=== PATIENT | male | born 1995 | race Caucasian/White ===

== ENCOUNTER 2019-09-28 18:34 | Emergency (ER) | payer MEDICAID ==
[~2019-09-28] VITALS: Ht 175.3 cm; Wt 94.3 kg
[2019-09-28 18:50] VITALS: Ht 175.3 cm; Wt 94.3 kg
[2019-09-28 19:45] LABS: ALBUMIN 3.9 g/dL (3.4-5.0); BILIRUBIN TOTAL 1.22 mg/dL (0.20-1.00); CALCIUM 8.7 mg/dL (8.5-10.1); CARBON DIOXIDE 20.2 mmol/L (21-32); TOTAL PROTEIN, SERUM 7.3 g/dL (6.4-8.2)
[2019-09-28 19:51] LABS: CREATININE SERUM 5.7 mg/dL (0.7-1.3)
[2019-09-28 20:09] LABS: BASOPHIL % 0 % (0-2); PLATELET COUNT 250 x10^3mcL (130-400); RED CELL DISTRIBUTION WIDTH 12.8 % (11.5-14.5)
[2019-09-28 21:25] VITALS: BP 123/66
[2019-09-28 22:03] LABS: UA SPECIFIC GRAVITY <=1.005 (1.005-1.035); microscopic required? YES; urine erythrocyte 1+ (NEGATIVE)
[2019-09-28 22:21] LABS: AMPHETAMINE QUAL UR NONE DETECTED (See below)
[2019-09-29] MEDS ORDERED: KEPPRA1000 M1 PO (14:03)
== END 2019-09-28 22:11 | disposition left against medical advice (07) ==
LOC: ED 18:34
PROVIDERS: Emergency Medicine
DX: N17.9 Acute kidney failure, unspecified (principal); M25.512 Pain in left shoulder; M25.511 Pain in right shoulder; M62.82 Rhabdomyolysis; G40.909 Epilepsy, unspecified, not intractable, without status epilepticus; Z98.890 Other specified postprocedural states
CPT/HCPCS: J1885; J2405; J7030; Q0092

== ENCOUNTER 2019-09-29 09:17 | Inpatient (IN) | payer MEDICAID ==
[~2019-09-29] VITALS: Ht 172.7 cm; Wt 91.9 kg
[2019-09-29 09:29] VITALS: Ht 172.7 cm; Wt 91.9 kg
--- NOTE | 2019-09-29 09:49 | NUR ---
PT. IN ED WITH C/O LOWER BACK AND ABD PAIN. STATES HE WAS HERE YESTERDAY AND WAS TOLD HE IS IN KIDNEY FAILURE. SIGNED OUT AMA AND REFUSED TO BE ADMITTED. PT. RETURNS TODAY WITH INCREASED PAIN. PT. AAOX4, TALKING AND RESPONDING APPROPRIATELY, BREATHING E/U. FAMILY AT BEDSIDE. AWAITING MSE.
--- NOTE | 2019-09-29 10:30 | NUR ---
DR. GREEN MADE AWARE THAT PT. DID NOT TAKE HIS KEPPRA TODAY. STATES WILL WAIT FOR CT BEFORE PO MEDS ARE GIVEN.
--- NOTE | 2019-09-29 10:32 | NUR ---
PT. TAKEN TO CT VIA AJ
[2019-09-29 10:48] LABS: BASOPHIL % 0.2 % (0-2); PLATELET COUNT 220 x10^3mcL (130-400); RED CELL DISTRIBUTION WIDTH 13.2 % (11.5-14.5)
[2019-09-29 11:07] LABS: ALBUMIN 3.7 g/dL (3.4-5.0); BILIRUBIN TOTAL 1.25 mg/dL (0.20-1.00); CALCIUM 8.2 mg/dL (8.5-10.1); CARBON DIOXIDE 21.1 mmol/L (21-32); CHOLESTEROL/HDL RATIO 3.6; POTASSIUM SERUM 3.8 mmol/L (3.5-5.1)
[2019-09-29 11:09] LABS: T3 TOTAL 1.37 ng/mL
[2019-09-29 11:14] LABS: CREATININE SERUM 6.4 mg/dL (0.7-1.3)
[2019-09-29 11:18] LABS: FREE T4 0.96 ng/dL (0.76-1.46); FREE THYROXINE INDEX 2.5 ug/dL (1.4-4.5); T4(THYROXINE) 7.3 ug/dL (4.7-13.3)
--- NOTE | 2019-09-29 11:22 | NUR ---
PT. SLEEPING, EASILY ARROUSABLE. NO APPARENT DISTRESS NOTED AT THIS TIME. FAMILY AT BEDSIDE. WILL CONTINUE TO MONITOR.
--- NOTE | 2019-09-29 12:08 | NUR ---
PT. LAYING ON GURNEY SLEEPING, EASILY ARROUSABLE. REQUEST MORE PAIN MEDS. DR. GREEN MADE AWARE. NO ORDERS GIVEN AT THIS TIME. WILL CONTINUE TO MONITOR.
[2019-09-29 12:28] LABS: AMPHETAMINE QUAL UR NONE DETECTED (See below)
--- NOTE | 2019-09-29 12:30 | NUR ---
PT. NOTED TO HAVE EPISODE OF EMESIS. DR. GREEN MADE AWARE AND COMPAZINE ORDERED. PT. TOLERATED WELL. WILL CONTINUE TO MONITOR.
[2019-09-29 12:46] LABS: UA SPECIFIC GRAVITY <=1.005 (1.005-1.035); microscopic required? YES; urine erythrocyte 1+ (NEGATIVE)
--- NOTE | 2019-09-29 13:00 | NUR ---
EMPTIED 300ML OF CLEAR YELLOW URINE FROM URINAL
[2019-09-29 13:26] LABS: MAGNESIUM 2.3 mg/dL (1.8-2.4); PHOSPHOROUS 3.3 mg/dL (2.5-4.9)
--- NOTE | 2019-09-29 13:52 | NUR ---
REPORT GIVEN TO CASI PAVON FOR FURTHER CARE OF PATIENT. ALL QUESTIONS AND CONCERNS ADDRESSED.
[2019-09-29] MEDS ORDERED: KEPPRA1000 M1 PO (14:03)
--- NOTE | 2019-09-29 14:48 | NUR ---
REFUSED MARCUS CATHETER, YELLED "NO!".
--- NOTE | 2019-09-29 14:51 | NUR ---
PT. TRANSFERED TO [facility] FOR FURTHER EVAL AND CARE
[2019-09-29 15:07] VITALS: BP 137/71
--- NOTE | 2019-09-29 17:01 | NUR ---
DELONTE FROM ED AT 1426. AAO TIMES 4. MED SURG. LUNGS CTA. NO SOB. BS'S ACTIVE TIMES 4. [place] WE[place]. IV SITE LFA CDI. MOTHER PRESENT, MOTHER CONCERNED AND CARING. NO C/O PAIN. C/O THIRST, I GAVE HIM ICE WATER, HE DRANK 2 CUPS AND PROMPTLY VOMITED UP THE CLEAR WATER. I NOTIFIED SPENCER MATHEW WILDFIRE PREVENTION SPECIALIST, AND SHE CHANGED THE DIET TO CLEAR LIQUIDS. PERIPHERAL PULSES PALPABLE. NO EDEMA. NO C/O PAIN.
--- NOTE | 2019-09-29 17:39 | NUR ---
AAO TIMES 4. PARENTS PRESENT, CONCERNED AND CARING. MED SURG PATIENT. COOPERATIVE. IV SITE CDI. NO C/O PAIN. NO SOB. NO C/O N/V. URINATED 800 ML OF CLEAR YELLOW URINE VIA URINAL, STATES HE FEELS BETTER. SEIZURE PRECAUTIONS. HE WILL GET KEPRA TONIGHT AND BID PER SPENCER GURROLA ORDER.
--- NOTE | 2019-09-29 20:26 | NUR ---
RECIEVED PT FROM AM, PT IS A/O X4, VERBAL RESPONSIVE, LUNG SOUND CLEAR BILATERAL, NO COUGH, NO SOB, PT DENY ANY CHEST PAIN OR DISCOMFORT, BOWEL SOUND PRESENT ALL 4 QUADRANTS, NO DISTENTION, NO TENDER. C/O LOW ABD PAIN AND N/V NORCO AND ZOFRAN IS GIVEN TO PT. PEDAL PULSE PRESENT BOTH FEET, NO EDEMA, IV AT LEFT AC, NO LEAKING, NO INFILTRAITON. ALL ADLS ASSIST, ALL NEED MET, CALL LIGHT IN REACH. WILL CONTINUE TO MONITOR.
[2019-09-29 20:35] VITALS: BP 139/100
--- NOTE | 2019-09-29 22:30 | NUR ---
KILLIAN PT TO LEVI PAVON.
--- NOTE | 2019-09-30 00:10 | NUR ---
PT C/O SHARP PAIN TO LOWER ABD 10/10. MEDICATED WITH NORCO.
--- NOTE | 2019-09-30 01:35 | NUR ---
PT RESTING WITH EYES CLOSED. NO DISTRESS NOTED. CALL LIGHT WITHIN REACH. MOTHER AT BEDSIDE. WILL CONTINUE TO MONITOR.
--- NOTE | 2019-09-30 04:49 | NUR ---
MORPHINE GIVEN FOR SHARP PAIN TO LOWER ABD 9/10. ZOFRAN GIVEN FOR NAUSEA.
[2019-09-30 05:20] VITALS: BP 122/68
--- NOTE | 2019-09-30 06:16 | NUR ---
PT RESTED IN INTERVALS DURING SHIFT. NO SOB NOTED ON ROOM AIR. C/O PAIN TO LOWER ABDOMEN, MEDICATED WITH NORCO X2 AND MORPHINE X2. ZOFRAN GIVEN X1 FOR NAUSEA. NO SEIZURES NOTED THROUGHOUT SHIFT. SIDE RAIL PADS IN PLACE. SAFETY MEASURES MAINTAINED. ALL NEEDS ATTENDED TO. CALL LIGHT WITHIN REACH. MOTHER AT BEDSIDE. WILL CONTINUE TO MONITOR AND ENDORSE CONTINUITY OF CARE TO DAY SHIFT RN.
[2019-09-30 06:37] LABS: BASOPHIL % 0.3 % (0-2); PLATELET COUNT 179 x10^3mcL (130-400); RED CELL DISTRIBUTION WIDTH 12.9 % (11.5-14.5)
--- NOTE | 2019-09-30 07:30 | NUR ---
PT ENDORSE TO ME THIS MORNING, LAYING IN BED RESTING/ AA/O X4/ SZ PREC INPLACE. BREATHING EVEN AND UNLABORED ON RA NO ACUTE RESP DISTRESS OR SOB NOTED. MEDSURG/ DENIES ANY CP OR PRESSURE. BOWEL SOUNDS ACTIVE IN ALL FOUR QUADS. VOIDS FEELY. AMB. SKIN INTACT AND PATENT. IV TO THE LAC INTACT AND PATENT/ NO REDNESS OR SWELLING NOTED. CALL LIGHT IN REACH.BED IN LOW POSTION. WILL CONTINUE TO MONITOR.
[2019-09-30 07:57] LABS: POTASSIUM SERUM 3.9 mmol/L (3.5-5.1)
[2019-09-30 08:21] LABS: CREATININE SERUM 5.4 mg/dL (0.7-1.3)
[2019-09-30 08:38] VITALS: BP 132/80
--- NOTE | 2019-09-30 09:32 | NUR ---
PT C/O BACK PAIN 08/23, MEDICATED PER EMAR. WILL CONTINUE TO MONITOR.
--- NOTE | 2019-09-30 09:51 | NUR ---
LAB CALLED BUN/CREAT = 29/5.4 PHARMACOLOGY ASSOCIATE MYRON MADE AWARE. WILL CONTINUE TO MONITOR.
[2019-09-30 12:11] VITALS: BP 142/85
--- NOTE | 2019-09-30 13:16 | NUR ---
PT C/O OF ABD PAIN 04/22, MEDICATED PER EMAR. WILL CONTINUE TO MONITOR, FAMILY AT BEDSIDE. PROVIDED PT WITH ALL SUPPLIES TO SHOWER/ TOLERATED WELL.
--- NOTE | 2019-09-30 15:17 | NUR ---
Discount pharmacy card and list to low cost medical clinics given to patient by Alysia.
--- NOTE | 2019-09-30 15:33 | NUR ---
PT SITTING UP IN BED RESTING TALKING TO A VISITOR. IS C/O ABD PAIN 10/, EDUCATED PT ITS NOT TIME FOR MORPHINE AT THIS TIME, MEDICATED WITH NORCO. WILL CONTINUE TO MONITOR.
[2019-09-30 16:05] VITALS: BP 152/93
--- NOTE | 2019-09-30 17:30 | NUR ---
PT C/O OF N/V ABD PAIN 04/22, MEDICATED PER EMAR.
[2019-09-30 17:32] VITALS: BP 141/73
--- NOTE | 2019-09-30 18:12 | NUR ---
NO ACUTE CHANGES AT THIS TIME, NO ACUTE RESP DISTRESS OR SOB NOTED. TOLERATED 100% OF DINNER/ DENIES ANY N/V AT THIS TIME, MEDICATED PER EMAR. IV TO THE LAC INTACT AND PATENT/ NO REDNESS OR SWELLING NOTED. CALL LIGHT IN REACH. WILL CONTINUE TO MONITOR.
--- NOTE | 2019-09-30 18:59 | NUR ---
WILL ENDORSE TO INCOMING RN.
--- NOTE | 2019-09-30 20:10 | NUR ---
MEDICATED PT WITH PRN NORCO FOR KIDNEY PAIN 03/23, PT'S AAOX4 NO ACUTE DISTRESS NOTED, LUNG SOUNDS CTA, ABD SOFT BS ACTIVE X4, ABD SOFT NON-TENDER TO TOUCH , PIV INTACT WITH NS AT 150ML/HR ,CALL LIGHT WITH PT'S REACH , WILL CON'T TO MONITOR AND ASSIST PT WITH CARE .
[2019-09-30 20:35] VITALS: BP 144/92
[2019-10-01 04:44] VITALS: BP 136/81
--- NOTE | 2019-10-01 05:04 | NUR ---
MEDICATED PT FOR ABD PAIN /NAUSEA NO EMESIS NOTED, .
--- NOTE | 2019-10-01 05:06 | NUR ---
I HAVE REVIEWED THE DATA COLLECTION BY DORIS (NAME):RUSSELL SHIELDS ENTERED ON (DATE/TIME):09/30 I CONCUR WITH THE DATA AND ANY EXCEPTIONS OR COMMENTS ARE LISTED BELOW:
--- NOTE | 2019-10-01 06:23 | NUR ---
PT;S IN BED WITH EYES CLOSED , PIV INTACT INFUSING WELL , MOTHER AT THE BEDSIDE FOR SAFTY .
[2019-10-01 06:52] LABS: BASOPHIL % 0.4 % (0-2); PLATELET COUNT 212 x10^3mcL (130-400); RED CELL DISTRIBUTION WIDTH 12.8 % (11.5-14.5)
--- NOTE | 2019-10-01 07:44 | NUR ---
0700. REPORT TAKEN FROM EMPLOYMENT RECRUITER NURSE AT THE BEDSIDE, PATIENT RESTING AT THIS TIME WITH EYES CLOSED, CHEST RISE AND FALL OBSERVED, BREATHING EAQUAL AND UNLABORED, NO ACUTE DISTRESS OBSERVED, WILL CONTINUE TO MONITOR,.
[2019-10-01 07:46] LABS: CARBON DIOXIDE 22.4 mmol/L (21-32); CREATININE SERUM 3.8 mg/dL (0.7-1.3); MAGNESIUM 1.7 mg/dL (1.8-2.4); POTASSIUM SERUM 3.3 mmol/L (3.5-5.1)
[2019-10-01 08:37] VITALS: BP 150/91
--- NOTE | 2019-10-01 09:42 | NUR ---
PATIENT TOLERATED MEDICATION WELL, REPORTS LOWER ABD PAIN, GIVEN NORCO PRN, VOIDS WELL INTO BEDSIDE URINAL, WILL CONTINUE TO MONITOR.
--- NOTE | 2019-10-01 10:46 | NUR ---
PATIENT REQUESTED TO SHOWER, I SPOKE TO IZABELA MATHEW WHO GAVE TELEPHONE ORDER GIVING THE PATIENT PERMISSION TO SHOWER, I WRAPPED THE PATIENT'S IV SITE, AND GAVE HIM SUPPLIES TO SHOWER WITH. HE DENIED NEEDED HELP SHOWERING, WILL MONITOR.
[2019-10-01 12:23] VITALS: BP 142/87
--- NOTE | 2019-10-01 13:21 | NUR ---
PATIENT ASKED WHAT MEDICATIONS HE CAN TAKE GOING HOME FOR PAIN BEFORE HE SEES HIS PRIMARY CARE PROVIDER TOMORROW MORNING. I SPOKE TO IZABELA MATHEW WHO ADVISED THE PATIENT TAKE OTC IBUPROFEN OR TYLENOL NEEDED FOR PAIN. I WILL REPORT TO PATIENT AND HIS MOTHER.
[2019-10-01 14:10] VITALS: BP 142/87
--- NOTE | 2019-10-01 15:08 | NUR ---
1445: PATIENT SIGNED DISCHARGE PAPERWORK AT THE BEDSIDE, IV DC'D FROM RIGHT HAND WITH CATH INTACT, SITE DRESSED WITH GAUZE AND COBAN, PATIENT AND HIS MOTHER ADVISED OF FOLLOW UP APPOINTMENT SCHEDULED WITH PCP FOR TOMORROW MORNING, BOTH VERBALIZED UNDERSTANDING. PATIENT AND HIS MOTHER ALSO ADVISED THAT THEY WILL RECEIVE A CALL FROM RADIATION MONITOR TOMORROW TO ADVISE ON NEPHO FOLLOW UP. PHONE NUMBER IN CHART CONFIRMED AT THE BEDSIDE. PATIENT TAKEN TO DISCAHRGE OFFICE BY JAYLEN.
--- NOTE | 2019-10-02 14:23 | NUR ---
MARILYN KYLE. 10/01/19 AT 1305-[facility] GIVEN TO PATIENT BY KHADIJAH.
== END 2019-10-01 14:52 | disposition home or self-care (01) | DRG 351 ==
LOC: ED 09:17 → MU 13:09
PROVIDERS: Internal Medicine Nephrology; Specialist; ADMIT Family Medicine
DX: M62.82 Rhabdomyolysis (principal); N17.0 Acute kidney failure with tubular necrosis; E83.51 Hypocalcemia; R31.9 Hematuria, unspecified; G40.909 Epilepsy, unspecified, not intractable, without status epilepticus; F12.10 Cannabis abuse, uncomplicated; Z68.30 Body mass index [BMI] 30.0-30.9, adult
CPT/HCPCS: 36600; 83880; 84439; G0378; G0480; J0696; J0780; J1940; J2270; J2405; J3490; J7030; Q0092

== ENCOUNTER 2019-10-02 23:06 | Inpatient (IN) | payer MEDICAID ==
[~2019-10-02] VITALS: Ht 172.7 cm; Wt 95.3 kg
[~2019-10-02 23:06] MED LIST: KEPPRA1000 M1 PO
[2019-10-02 23:11] VITALS: Ht 172.7 cm; Wt 95.3 kg
--- NOTE | 2019-10-02 23:20 | NUR ---
DR. MURPHY AT BEDSIDE WITH MSE,
--- NOTE | 2019-10-02 23:21 | NUR ---
PT. PRESENTS TO ER C/O SWELLING ON LEFT UPPER EXTREMITIY, PT. STATES HE WAS ADMITTED TO THE HOSPITAL TWO DAYS AGO, RECEIVED AN IV ON LAC, PT. STATES TODAY HE NOTICED A SWELLING TO THE LAC WHERE IV WAS IN PLACE ALL THE WAY TO HIS HAND, PT. STATES IT IS DIFFICULT FOR HIM TO EXTEND HIS ARM, REDNESS NOTED, SWELLING NOTED, HOT TO TOUCH, BRUISING NOTED IN LEFT UPPER EXTREMITIES, NUMBNESS AND TINGLING, PT. DENIES SOB, DENIES CHEST PAIN, DENIES N/V/D, DENIES URINARY SYMPTOMS, PT. STATES HE TOOK SOMETHING FOR NAUSEA BEFORE HE CAME, CANNOT RECALL THE NAME OF THE MEDICATION, STATES HE SMOKES MARIJUANA, MOTHER AT BEDSIDE, SAFETY PRECAUTIONS IN PLACE, WILL MONITOR,
--- NOTE | 2019-10-02 23:35 | NUR ---
CHEST X RAY OBTAINED, EKG IN PROGRESS
[2019-10-03 00:21] LABS: BASOPHIL % 0.8 % (0-2); PLATELET COUNT 252 x10^3mcL (130-400); RED CELL DISTRIBUTION WIDTH 12.7 % (11.5-14.5)
[2019-10-03 00:29] LABS: CALCIUM 7.1 mg/dL (8.5-10.1); CARBON DIOXIDE 29.9 mmol/L (21-32); CREATININE SERUM 2.3 mg/dL (0.7-1.3)
[2019-10-03 00:33] LABS: ALBUMIN 3.1 g/dL (3.4-5.0); BILIRUBIN TOTAL 0.82 mg/dL (0.20-1.00); TOTAL PROTEIN, SERUM 6.9 g/dL (6.4-8.2)
--- NOTE | 2019-10-03 00:50 | NUR ---
US AT BEDSIDE
[2019-10-03 01:13] LABS: microscopic required? YES; urine erythrocyte 1+ (NEGATIVE)
[2019-10-03 01:22] LABS: AMPHETAMINE QUAL UR NONE DETECTED (See below)
--- NOTE | 2019-10-03 01:28 | NUR ---
PT. LAYING IN BED, AAOX4, NO ACUTE DISTRESS NOTED, DR. MURPHY AT BEDSIDE WITH UPDATE ON PT, PT. TO BE ADMITTED, WILL CONTINUE TO MONITOR.
--- NOTE | 2019-10-03 02:31 | NUR ---
REPORT SIEGEL TO DAMON BLANC RN
--- NOTE | 2019-10-03 02:55 | NUR ---
RECEIVED PT FROM ED VIA NIGEL ACCOMPANIED BY RN. PT AA&O X4. NO SOB NOTED ON ROOM AIR. C/O NAUSEA AND BODY ACHE. WILL MEDICATE PER ORDER. IV TO RIGHT HAND, PATENT AND INTACT. EDEMA AND ECCHYMOSIS TO LUE NOTED. SCAB/ABRASION TO RUE. SAFETY MEASURES IN PLACE. BED IN LOWEST POSITION. SIDE RAILS UP X2. CALL LIGHT WITHIN REACH. DEMONSTRATED HOW TO USE THE CALL LIGHT FOR ASSISTANCE. CALL LIGHT WITHIN REACH. MOTHER AT BEDSIDE.
--- NOTE | 2019-10-03 02:59 | NUR ---
PT C/O NAUSEA, MEDICATED WITH ZOFRAN.
--- NOTE | 2019-10-03 03:06 | NUR ---
PT C/O BODY ACHE 07/23. MEDICATED WITH MORPHINE.
[2019-10-03 04:47] VITALS: BP 136/85
[2019-10-03 06:06] LABS: BASOPHIL % 0.4 % (0-2); PLATELET COUNT 249 x10^3mcL (130-400); RED CELL DISTRIBUTION WIDTH 12.9 % (11.5-14.5)
[2019-10-03 06:45] LABS: CALCIUM 7.3 mg/dL (8.5-10.1); CARBON DIOXIDE 27.1 mmol/L (21-32); CREATININE SERUM 2.1 mg/dL (0.7-1.3); MAGNESIUM 1.5 mg/dL (1.8-2.4); PHOSPHOROUS 4.7 mg/dL (2.5-4.9); POTASSIUM SERUM 3.4 mmol/L (3.5-5.1)
--- NOTE | 2019-10-03 07:00 | NUR ---
PT RESTING WITH EYES CLOSED. BREATHING EVEN AND UNLABORED ON ROOM AIR. NO DISTRESS NOTED. SAFETY MEASURES MAINTAINED. CALL LIGHT WITHIN REACH. MOTHER AT BEDSIDE. WILL ENDORSE CONTINUITY OF CARE TO DAY SHIFT RN.
--- NOTE | 2019-10-03 07:20 | NUR ---
RECEIVED PT. IN BED A/A/O X3. NO SOB, NO N/V NOTED. PT. DENIES ANY PAIN AT THIS TIME. MOTHER AT BEDSIDE. NS RUNNING AT 100 CC/HR VIA IV SITE AT R HAND. SWELLING AND REDNESS NOTED TO L UPPER ARM. BED IN LOW POS., CALL LIGHT WITHIN REACH. SIDE RAILS UP X3.
[2019-10-03 09:07] VITALS: BP 122/64
--- NOTE | 2019-10-03 09:10 | NUR ---
PT. STATED " THE DOCTORS HERE ARE NOT DOING THE RIGHT THING. JUST GIVE ME MY PRESCRIPTIONS AND I'M LEAVING." AMA FORM HANDED TO PT. BY OR[place]O Mojica (SKI TOW OPERATOR). PT. REFUSED TO SIGN AMA PAPER. PT. STATED " I'M NOT SIGNING ANYTHING UNTIL YOU GUYS GIVE ME MY PRESCRIPTIONS FOR MY BLOOD THINNER AND MY ANTIBIOTIC." DR. JARQUIN AND DR. SIDHU WERE NOTIFIED OF PT.'S REQUEST FOR PRESCRIPTIONS PRIOR TO LEAVING AMA BY OR[place]O Mojica (SKI TOW OPERATOR). NO FURTHER ORDER RECEIVED FROM DR. JARQUIN AND DR. SIDHU PER ORLANDO Silva. ENGLISH PROFESSOR SPENSER Amezcua ALSO SPOKE TO PT. REGARDING PT.'S COMPLAINT. GRIEVANCE FORM WAS ALSO PROVIDED TO PT. BY ORLANDO Mojica (SKI TOW OPERATOR).
--- NOTE | 2019-10-03 09:39 | NUR ---
PT. STATED HE HAS PAIN ON HIS L ARM AND THAT HE NEEDS HIS PAIN MED. PRIOR TO LEAVING. MANJINDER 7. 1 TAB. GIVEN.
--- NOTE | 2019-10-03 09:50 | NUR ---
PT. LEAVING AMA WITH ALL BELONGINGS. MOM WAS WITH PT. AT TIME OF LEAVING. TELE. MONITOR #[id number] REMOVED AND RETURNED TO TELE. MONITOR STATION. PT. SELF-REMOVED IV H/L TO R HAND AROUND 0900 AM TODAY.
== END 2019-10-03 09:49 | disposition left against medical advice (07) | DRG 197 ==
LOC: ED 23:06 → DU 10-03 01:24
PROVIDERS: Emergency Medicine; ADMIT Family Medicine
DX: I82.622 Acute embolism and thrombosis of deep veins of left upper extremity (principal); N17.0 Acute kidney failure with tubular necrosis; M62.82 Rhabdomyolysis; E44.1 Mild protein-calorie malnutrition; E87.6 Hypokalemia; G40.909 Epilepsy, unspecified, not intractable, without status epilepticus; F12.20 Cannabis dependence, uncomplicated
CPT/HCPCS: 83880; 85378; G0378; J1650; J2270; J2405; Q0092